=== PATIENT | male | born 1955 | race Caucasian/White ===

== ENCOUNTER 2023-12-16 09:04 | Outpatient (CLI) | payer MEDICARE ==
[~2023-12-16 09:04] MED LIST: Iopamidol 300 61% 100 ML VIAL FS ONE
== END 2023-12-16 09:05 | disposition home or self-care (01) ==
LOC: CSHCT 09:04
PROVIDERS: ATTEND Nurse Practitioner Family
DX: R22.2 Localized swelling, mass and lump, trunk (principal)
CPT/HCPCS: 71260; 82565; Q9967

== ENCOUNTER 2024-10-01 09:42 | Outpatient (CLI) | payer MEDICARE | END 2024-10-01 09:43 | disposition home or self-care (01) | LOC: CSHSLEEP 09:42 | PROVIDERS: ATTEND Nurse Practitioner Family | DX: G47.33 Obstructive sleep apnea (adult) (pediatric) (principal); G47.9 Sleep disorder, unspecified; E66.9 Obesity, unspecified; Z68.31 Body mass index [BMI] 31.0-31.9, adult; R06.83 Snoring; G47.00 Insomnia, unspecified; I10 Essential (primary) hypertension; G47.61 Periodic limb movement disorder | CPT/HCPCS: 95810 ==

== ENCOUNTER 2024-10-03 09:45 | Outpatient (CLI) | payer MEDICARE | END 2024-10-03 09:46 | disposition home or self-care (01) | LOC: CSHSLEEP 09:45 | PROVIDERS: ATTEND Nurse Practitioner Family | DX: G47.33 Obstructive sleep apnea (adult) (pediatric) (principal); G47.9 Sleep disorder, unspecified; E66.9 Obesity, unspecified; Z68.31 Body mass index [BMI] 31.0-31.9, adult; R06.83 Snoring; G47.00 Insomnia, unspecified; I10 Essential (primary) hypertension; G47.61 Periodic limb movement disorder | CPT/HCPCS: 95811 ==